=== PATIENT | female | born 1995 | race Caucasian/White ===

== ENCOUNTER 2021-11-05 05:52 | Emergency (ER) | payer OTHER ==
[2021-11-05 06:51] VITALS: BP 103/56; PULSE 106; TEMP 100.2; BMI 25.9
[2021-11-05] MEDS ORDERED: ACETAMINOPHEN 325 MG TABLET (FP) PO ONE (08:37)
[2021-11-05] MEDS ORDERED: DEXAMETHASONE LIQUID 0.5 MG/5 ML PO ONE (08:37)
[2021-11-05] MEDS ORDERED: DEXAMETHASONE SOD PHOSPHATE 10 MG/1 ML VIAL ONE (10:00)
[2021-11-05] MEDS ORDERED: ACETAMINOPHEN 500 MG TABLET (FP) ONE (10:01)
[2021-11-07 04:06] LABS: SARS-CoV-2 NAA Detected (Not Detected)
== END 2021-11-05 12:27 | disposition home or self-care (01) ==
LOC: JER 05:52
DX: U07.1 COVID-19 (principal)
CPT/HCPCS: 87070; 99283-25; C9803; U0003; U0005

== ENCOUNTER 2022-04-25 20:48 | Emergency (ER) | payer OTHER ==
[2022-04-25 21:10] VITALS: BP 107/75; PULSE 78; TEMP 98.8; BMI 25.9
[2022-04-25] MEDS ORDERED: CIPROFLOXACIN 0.3% EYE DROPS 5 ML BOTTLE ONE (22:37)
[2022-04-25] MEDS ORDERED: DEXAMETHASONE 0.1% OPHTHALMIC SOLN 5 ML BOTTLE OD ONE (22:39)
[2022-04-25] MEDS ORDERED: CIPROFLOXACIN 0.3% EYE DROPS 5 ML BOTTLE OD ONE (22:41)
[2022-04-25] MEDS ORDERED: KETOROLAC TROMETHAMINE 30 MG/1 ML VIAL IM ONE (22:45)
[2022-04-25] MEDS ORDERED: KETOROLAC TROMETHAMINE 60 MG/2 ML VIAL ONE (22:45)
[2022-04-26] MEDS ORDERED: DEXAMETHASONE 0.1% OPHTHALMIC SOLN 5 ML BOTTLE OD ONE (22:39)
[2022-04-26] MEDS ORDERED: CIPROFLOXACIN 0.3% EYE DROPS 5 ML BOTTLE OD ONE (22:40)
== END 2022-04-25 22:55 | disposition home or self-care (01) ==
LOC: JERFT 20:48
PROC: 3E0233Z Introduction of Anti-inflammatory into Muscle, Percutaneous Approach (ICD-10-PCS; principal; 2022-04-25)
DX: H60.501 Unspecified acute noninfective otitis externa, right ear (principal)
CPT/HCPCS: 99284-25